=== PATIENT | male | born 1970 | race Hispanic/Latino ===

== ENCOUNTER → 2018-06-04 | Outpatient (CLI) | payer OTHER ==
[~2018-06-04] VITALS: Ht 175.3 cm; Wt 126.1 kg
[~2018-06-04] MED LIST: ALBU83IN INH; HUMA100I3 SC; INSUH10VL SC; LEVALBUTEROL 1.25 MG/0.5 ML CONCENTRATE NEB As Ordered ONE; LEVALBUTEROL 1.25 MG/0.5 ML CONCENTRATE NEB NEB ONE; LIDOCAINE 2% INJ 100 MG/5 ML SDV (FOR ANES.) As Ordered ONE; NS 1,000 ML IV ONE; PROPOFOL 200 MG/20 ML VIAL As Ordered ONE; SIMETHICONE 40MG/0.6ML DROPS 30ML As Ordered ONE
[2018-06-04 07:40] VITALS: BP 130/110
== END ==
LOC: M OPP 06:57 → EDSTATUS 08:00
PROVIDERS: ATTEND Surgery
DX: R05 Cough (principal); R06.2 Wheezing; Z53.8 Procedure and treatment not carried out for other reasons

== ENCOUNTER → 2019-01-13 | Outpatient (REF) ==
[~2019-01-13] MED LIST changes: -LEVALBUTEROL 1.25 MG/0.5 ML CONCENTRATE NEB As Ordered ONE; -LEVALBUTEROL 1.25 MG/0.5 ML CONCENTRATE NEB NEB ONE; -LIDOCAINE 2% INJ 100 MG/5 ML SDV (FOR ANES.) As Ordered ONE; -NS 1,000 ML IV ONE; -PROPOFOL 200 MG/20 ML VIAL As Ordered ONE; -SIMETHICONE 40MG/0.6ML DROPS 30ML As Ordered ONE
[2019-01-14 10:12] LABS: RUBELLA IgG QUALITATIVE EQUIVOCAL (IMMUNE)
== END ==
LOC: M LAB 09:02
PROVIDERS: ATTEND Nurse Practitioner Adult Health
DX: Z02.1 Encounter for pre-employment examination (principal)